=== PATIENT | male | born 1970 | race Caucasian/White ===

== ENCOUNTER 2020-08-01 10:22 | Emergency (ER) | payer SELFPAY ==
[~2020-08-01] VITALS: Ht 172.7 cm; Wt 104.3 kg
--- NOTE | 2020-08-01 10:29 | NUR ---
Patient to ER bed FT1 to gown for evaluation. Side rails up.
--- NOTE | 2020-08-01 10:30 | NUR ---
Pt walked in to ER with c/o bilat testicle pain and swelling and right rib and flank pain x 2days. Pt has been able to urinate. Reports taking advil last night but it was not effective. V/S stable, no distress noted.
[2020-08-01 10:37] VITALS: BP_SYST 152
--- NOTE | 2020-08-01 10:50 | NUR ---
Pt to ultra sound via wheelchair accompanied by staff
--- NOTE | 2020-08-01 11:20 | NUR ---
Dr Figueredo evaluating patient in the FT
[2020-08-01] MEDS ORDERED: HYDROcodone/ACETAMIN 5-325 MG TAB (NORCO/ VICODIN) PO ONE (11:45)
--- NOTE | 2020-08-01 13:50 | NUR ---
Patient transported to radiology via wheelchair, accompanied by staff.
[2020-08-01 16:16] VITALS: BP_SYST 152
--- NOTE | 2020-08-01 16:18 | NUR ---
Patient given written and verbal discharge instructions and verbalizes understanding. ER MD discussed with patient the results and treatment provided. Patient in stable condition. ID arm band removed. Rx of Perry given. Patient educated on pain management and to follow up with PMD. Pain Scale 4/10 tolerable for patient. Opportunity for questions provided and answered. Medication side effect fact sheet provided.
== END 2020-08-01 16:16 | disposition home or self-care (01) ==
LOC: SED 10:22
DX: N50.82 Scrotal pain (principal)
CPT/HCPCS: 76376; 76870-TC; 99285